=== PATIENT | male | born 1985 | race Hispanic/Latino ===

== ENCOUNTER 2025-07-22 20:44 | Emergency (ER) | payer OTHER ==
--- OUTSIDE RECORDS SUMMARY | 2025-07-22 20:46 | XMS REPORT | Continuity of Care Document ---
Author Name Unknown Address [address] [facility] [place] [address] [facility] Address [address] [facility] [address] [place] [address] Care Team Providers Care Vocational Rehabilitation Administrator Name Role Phone Jairo Cooney Attending Clinician Unavailable ANGI ADKINS Attending Clinician Unavailable Payers Payer Name Policy Type Policy Number Effective Date Expirati on Date Source [employer] CHOICE POS II [id number] 2018 00:00:00 Allergies, Adverse Reactions, Alerts Allergy Name Allergy Type Status Severity Reaction(s) Onset Date Inactive Date Treating Clinician Comments Source NO KNOWN ALLERGIE S Drug Class Active [facility] Encounters Start Date/Time End Date/Time Encounter Type Admission Type Attending Clinicians Care Facility Care Department Encounter ID Source 2022-03-21 08:49:02 Outpatient Jairo Cooney [facility] [id number] [facility] 2022-03-20 14:01:02 Outpatient [facility] [id number] [facility] 2020-12-19 08:30:00 2020-12-19 08:30:00 Outpatient [facility] [id number] [facility] 2020-12-19 08:30:00 2020-12-19 08:30:00 Outpatient [facility] [id number] [facility]
[2025-07-22] MEDS ORDERED: TDAP (DIPHTH,PERTUSS(ACELL),TET VAC) 0.5 ML VIAL IMVAC ONE (22:49)
[2025-07-22] MEDS ORDERED: IBUPROFEN 400 MG TAB ONE (22:49)
[2025-07-22] MEDS ORDERED: AMOX/K CLAV 875 MG TAB ONE (22:49)
--- NOTE | 2025-07-22 23:49 | ER ---
Nurse's Notes [facility] Name: Bozena Vaughan III Age: 40 yrs Sex: Male : 1985 Arrival Date: 07/22/2025 Time: 20:44 Bed 12 Private MD: Diagnosis: Bitten by dog;Puncture wound without foreign body of right great toe without damage to nail, initial encounter Presentation: 07/22 21:19 Chief complaint: Patient states: BITTEN ON RT FOOT AND RT GREAT TOE BY HIS [place] dd2 ANDRES. Coronavirus screen: At this time, the client does not indicate any symptoms associated with coronavirus-19. Ebola Screen: No symptoms or risks identified at this time. Initial Sepsis Screen: Does the patient meet any 2 criteria? No. Patient's initial sepsis screen is negative. Does the patient have a suspected source of infection? No. Patient's initial sepsis screen is negative. Risk Assessment: Do you want to hurt yourself or someone else? Patient reports no desire to harm self or others. Onset of symptoms was July 22, 2025. 21:19 Method Of Arrival: Ambulatory dd2 21:19 Acuity: PASTOR 3 dd2 Triage Assessment: 21:20 Bite description: bite sustained to dorsum of right foot and right first toe by a dog, dd2 animal information: vaccination(s) is current. General: Appears in no apparent distress. uncomfortable, Behavior is calm, cooperative, appropriate for age. Pain: Complains of pain in dorsum of right foot and right first toe. Injury Description: Bite sustained to dorsum of right foot and right first toe caused by a dog. Historical: - Allergies: 21:20 No Known Allergies; dd2 - PMHx: 21:20 High Cholesterol; Sleep apnea; dd2 - PSHx: 21:20 Vasectomy; dd2 - Immunization history:: Adult Immunizations not up to date, Last tetanus immunization: unknown. - Social history:: Smoking status: Patient denies any tobacco usage or history of. Screenin:35 [facility] ED Fall Risk Assessment (Adult) History of falling in the last 3 months, br2 including since admission No falls in past 3 months (0 pts) Confusion or Disorientation No (0 pts) Intoxicated or Sedated No (0 pts) Impaired Gait No (0 pts) Mobility Assist Device Used No (0 pt) Altered Elimination No (0 pt). [facility] ED Fall Risk Assessment (Adult) Score/Fall Risk Level 0 - 2 = Low Risk Oriented to surroundings. [facility] ED Fall Risk Assessment (Adult) History of falling in the last 3 months, including since admission No falls in past 3 months (0 pts). Abuse screen: Denies threats or abuse. Denies injuries from another. Nutritional screening: No deficits noted. Tuberculosis screening: No symptoms or risk factors identified. Assessment: 22:35 Reassessment: Patient and/or family updated on plan of care and expected duration. Pain br2 level reassessed. Patient is alert, oriented x 3, equal unlabored respirations, skin warm/dry/pink. General: Appears in no apparent distress. comfortable, Behavior is calm, cooperative. Neuro: Greene Agitation-Sedation Scale (RASS): 0 - Alert and Calm Level of Consciousness is awake, alert, obeys commands, Oriented to person, place, time, situation. Cardiovascular: Denies chest pain. Respiratory: Respiratory effort is even, unlabored, Respiratory pattern is regular, symmetrical. GI: No signs and/or symptoms were reported involving the gastrointestinal system. : No signs and/or symptoms were reported regarding the genitourinary system. Derm: Skin has skin tears on GREAT TOE WITH 2 SMALL AVULSIONS, AND ABRASIONS Skin is pink, warm \T\ dry. 23:30 Reassessment: Patient and/or family updated on plan of care and expected duration. Pain br2 level reassessed. Patient is alert, oriented x 3, equal unlabored respirations, skin warm/dry/pink. Patient states feeling better. Patient states symptoms have improved. 07/23 00:08 Reassessment: PER PT NELIA KING HAS BEEN NOTIFIED. br2 Vital Signs: 07/22 21:19 BP 131 / 104; Pulse 98; Resp 16; Temp 97.3; Pulse Ox 100% ; Weight 117.93 kg; Height 5 dd2 ft. 9 in. ; Pain 6/10; 07/23 00:08 BP 131 / 90; Pulse 87; Resp 18; Temp 97.1; Pulse Ox 99% ; Pain 1/10; br2 07/22 21:19 Body Mass Index 38.39 (117.93 kg, 175.26 cm) dd2 07/22 21:19 Pain Scale: Adult dd2 07/23 00:08 Pain Scale: Adult br2 ED Course: 07/22 20:46 Patient arrived in ED. mr 21:03 Walker Mckeon PA-C is PHCP. cp 21:03 Walker Diego MD is Attending Physician. cp 21:20 Triage completed. dd2 21:20 Arm band placed on right wrist. dd2 22:35 Patient has correct armband on for positive identification. Bed in low position. Call br2 light in reach. Side rails up X 1. Provided Education on: PLAN OF CARE. 22:47 XRAY Foot RIGHT 3 View In Process Unspecified. EDMS 22:58 Susan Louie RN is Primary Nurse. br2 23:11 Wound care: to puncture located on medial aspect of right toes, plantar aspect of right br2 first toe, right first toe and Right first toenail was cleaned with Betadine, dressed with TRIPLE ANTIBIOTIC. 07/23 00:09 No provider procedures requiring assistance completed. Patient did not have IV access br2 during this emergency room visit. Administered Medications: 07/22 22:57 Drug: Ibuprofen PO 800 mg PO once Route: PO; br2 23:00 Follow up: Response: No adverse reaction; Pain is decreased br2 22:57 Drug: Amoxicillin-Clavulanate PO 875 mg PO once Route: PO; br2 23:00 Follow up: Response: No adverse reaction br2 22:57 Drug: Boostrix Tdap IM 0.5 ml IM once; as a single dose Route: IM; Site: right deltoid; br2 23:00 Follow up: Response: No adverse reaction br2 Medication: 07/23 00:09 Vaccine Information Statement (VIS) provided today. Questions and/or concerns br2 addressed. VIS edition date: May 17, 2021. Outcome: 07/22 23:48 Discharge ordered by . cp 07/23 00:09 Discharged to home ambulatory, br2 Condition: improved Discharge instructions given to patient, Instructed on discharge instructions, follow up and referral plans. Demonstrated understanding of instructions, follow-up care, medications, Prescriptions given X 2, 00:10 Patient left the ED. br2 Signatures: Dispatcher [employer] [facility] Tierra Still, Reg Reg mr Walker Mckeon PA-C PA-C cp Riddle, Belinda, RN RN br2 BAKARI, MARIE, RN RN dd2
--- NOTE | 2025-07-22 23:49 | EDPHYS ---
Physician Documentation [facility] Name: Bozena Vaughan III Age: 40 yrs Sex: Male : 1985 Arrival Date: 07/22/2025 Time: 20:44 Bed 12 Private MD: ED Physician Walker Diego HPI: 07/22 22:15 This 40 yrs old Male presents to ER via Ambulatory with complaints of Dog Bite.cp 22:15 The patient was bitten on the plantar aspect of right first toe, by a dog, while trying cp to stop animals from fighting, at home. Onset: The symptoms/episode began/occurred just prior to arrival. Animal information: Animal control has been notified. Secondary to the bite the patient reports multiple lacerations, that are deep. Associated signs and symptoms: The patient has no apparent associated signs or symptoms. Severity of symptoms: in the emergency department the symptoms are unchanged, despite home interventions. Historical: - Allergies: 21:20 No Known Allergies; dd2 - PMHx: 21:20 High Cholesterol; Sleep apnea; dd2 - PSHx: 21:20 Vasectomy; dd2 - Immunization history:: Adult Immunizations not up to date, Last tetanus immunization: unknown. - Social history:: Smoking status: Patient denies any tobacco usage or history of. ROS: 22:20 Constitutional: Negative for fever, poor PO intake, cp 22:20 Eyes: Negative for injury, pain, redness, and discharge, cp 22:20 Cardiovascular: Negative for chest pain, palpitations, 22:20 Respiratory: Negative for cough, shortness of breath, wheezing, 22:20 Abdomen/GI: Negative for abdominal pain, 22:20 Back: Negative for pain at rest, pain with movement, 22:20 Skin: Positive for laceration(s), of the plantar aspect of right first toe, 22:20 Neuro: Negative for numbness, 22:20 All other systems are negative, Exam: 22:25 Constitutional: The patient appears in no acute distress, alert, awake, non-toxic, well cp developed, well nourished, obese, 22:25 Head/Face: Normocephalic, atraumatic. cp 22:25 Eyes: Periorbital structures: appear normal, Conjunctiva: normal, no exudate, no injection, Sclera: no appreciated abnormality, Lids and lashes: appear normal, bilaterally, 22:25 ENT: External ear(s): are unremarkable, Nose: is normal, Mouth: Lips: moist, Oral mucosa: moist, 22:25 Chest/axilla: Inspection: normal, 22:25 Cardiovascular: Rate: normal, 22:25 Respiratory: the patient does not display signs of respiratory distress, Respirations: normal, no use of accessory muscles, no retractions, labored breathing, is not present, Breath sounds: are clear throughout, 22:25 Abdomen/GI: Inspection: abdomen appears normal, 22:25 Back: pain, is absent, 22:25 Musculoskeletal/extremity: Extremities: noted in the plantar aspect of right first toe: deep lacerations noted plantar side of right great toe, mild bleeding, mild swelling, tenderness to palpation, There is no evidence of decreased ROM, deformity, the right foot Sensation intact. Vital Signs: 21:19 BP 131 / 104; Pulse 98; Resp 16; Temp 97.3; Pulse Ox 100% ; Weight 117.93 kg; Height 5 dd2 ft. 9 in. ; Pain 6/10; 07/23 00:08 BP 131 / 90; Pulse 87; Resp 18; Temp 97.1; Pulse Ox 99% ; Pain 1/10; br2 07/22 21:19 Body Mass Index 38.39 (117.93 kg, 175.26 cm) dd2 07/22 21:19 Pain Scale: Adult dd2 07/23 00:08 Pain Scale: Adult br2 MDM: 07/22 21:12 Medical Screening Exam initiated cp 23:00 Differential diagnosis: superficial laceration, tendon injury, vascular injury, rabies, cp cellulitis. 23:47 Data reviewed: vital signs, nurses notes, radiologic studies, plain films, and as a cp result, I will discharge patient. 23:48 I considered the following discharge prescriptions or medication management in the cp emergency department Medications were administered in the Emergency Department. See MAR. 23:48 Counseling: I had a detailed discussion with the patient and/or guardian regarding the cp historical points, exam findings, and any diagnostic results supporting the discharge/admit diagnosis, radiology results, to return to the emergency department if symptoms worsen or persist or if there are any questions or concerns that arise at home. Special discussion: I discussed in detail with the patient the higher chance of wound infection based on his presenting history. 07/22 21:59 Order name: XRAY Foot RIGHT 3 View cp 07/22 23:37 Order name: Wound dressing; Complete Time: 23:48 cp Administered Medications: 22:57 Drug: Ibuprofen PO 800 mg PO once Route: PO; br2 23:00 Follow up: Response: No adverse reaction; Pain is decreased br2 22:57 Drug: Amoxicillin-Clavulanate PO 875 mg PO once Route: PO; br2 23:00 Follow up: Response: No adverse reaction br2 22:57 Drug: Boostrix Tdap IM 0.5 ml IM once; as a single dose Route: IM; Site: right deltoid; br2 23:00 Follow up: Response: No adverse reaction br2 Disposition Summary: 07/22/25 23:48 Discharge Ordered Notes: Location: Home cp Problem: new cp Symptoms: have improved cp Condition: Stable cp Diagnosis - Bitten by dog cp - Puncture wound without foreign body of right great toe without damage to nail, cp initial encounter Followup: cp - With: Private Physician - When: 2 - 3 days - Reason: Worsening of condition Discharge Instructions: - Discharge Summary Sheet cp - Puncture Wound cp - Animal Bite, Adult cp Forms: - Medication Reconciliation Form cp - Antibiotic Education cp - Prescription Opioid Use cp - Patient Portal Instructions cp - Leadership Thank You Letter cp Prescriptions: - Anaprox DS 550 mg Oral Tablet - take 1 tablet ORAL route every 12 hours As needed; 20 tablet; Refills: 0, cp Product Selection Permitted - Augmentin 875-125 mg Oral Tablet - take 1 tablet ORAL route every 12 hours for 10 days; 20 tablet; Refills: 0, cp Product Selection Permitted Addendum: 07/26/2025 06:54 Co-signature as Attending Physician, Walker Diego MD I agree with the assessment and c saldivar plan of care. Signatures: Dispatcher [employer] EDWalker Figueroa MD MD cha Page, Corey, PA-C PA-C Susan Priest RN RN br2 MARIE VILLEGAS RN RN dd2 Corrections: (The following items were deleted from the chart) 07/22 22:00 22:00 Foot Right 3 View+[email or web address] ordered. [facility]
[2025-07-23 00:34] VITALS: BP 131/90; TEMP 97.1; O2SAT 99
--- NOTE | 2025-07-23 01:11 | RAD REPORT ---
EXAM DESCRIPTION: XR FOOT 3 VIEWS RIGHT 07/23/2025 12:53 AM CDT CLINICAL HISTORY: 40 years, Male, Animal bite. COMPARISON: None. FINDINGS: 3 X-ray views of the right foot (frontal lateral and oblique projections) were performed. Bones: No areas of acute bony injuries were demonstrated. Soft tissues: No significant soft tissue swelling. Joints: No gross articular abnormality is identified. Others: There are no gross intraosseous lesions. No periosteal reaction were seen. No radiopaque foreign body. IMPRESSION: No acute bony injuries were demonstrated. Electronically signed by: Salo Michelle MD 07/23/2025 01:08 AM CDT RP Due to temporary technical issues with the PACS/SAVO reporting system, reports are being seth d by the in-house radiologist without review as a courtesy to ensure prompt reporting the interpreting radiologist is fully responsible for the content of the report. Transcribed Date/Time: 07/23/2025 1:10 AM
== END 2025-07-23 00:10 | disposition home or self-care (01) ==
LOC: ER 20:44
DX: S91.131A Puncture wound without foreign body of right great toe without damage to nail, initial encounter (principal); W54.0XXA Bitten by dog, initial encounter; Z23 Encounter for immunization
CPT/HCPCS: 90715; 96372; 99284